=== PATIENT | female | born 1955 | race American Indian/Alaskan Native ===

== ENCOUNTER 2018-08-09 15:50 | Emergency (ER) | payer MEDICARE, BC ==
[2018-08-09 16:16] VITALS: BMI 53.8
[2018-08-09 16:46] VITALS: TEMP 98
[2018-08-09] MEDS ORDERED: Magnesium Sulfate 1 gm in D5W 1 GM/100 ML BAG IVPB ONE (16:49)
[2018-08-09] MEDS: Albuterol-Ipratrop 3 mg / 0.5 (3 ml) UD IH SCH ×3 (17:00→17:36)
--- NOTE | 2018-08-09 17:39 | ED PDOC ---
Arrival/HPI - General Chief Complaint: Shortness Of Breath Historian: Patient - History of Present Illness Narrative History of Present Illness (Text): 08/09/18 17:49 62 year old female, whose Past medical history if significant for breast cancer, asthma and arthritis, who presents to the emergency department from her PCP BIB EMS for shortness of breath since last night. Patient reports she had difficulty breathing last night, which woke her up from sleep. She reports she used two nebulizer treatments at home before going to see her PCP, who listened to her lungs and recommended she visit the emergency department. She reports she arrived to the emergency room via EMS, who gave her rescue inhaler and oxygen with some relief. She also reports she is currently recovering form a productive cough onset 2 days ago , with a "mucousy" phlegm. She endorses runny nose, chills, any chronically swollen legs, but denies any fever, nausea, vomiting, abdominal pain, chest pain, or any other complaints. Time/Duration: 24 hours Symptom Onset: Gradual Symptom Course: Unchanged Activities at Onset: Light Context: Home Past Medical History - Provider Review Nursing Documentation Reviewed: Yes - Infectious Disease Hx of Infectious Diseases: None - Cardiac Hx Cardiac Disorders: No - Pulmonary Hx Respiratory Disorders: Yes Hx Asthma: Yes - Neurological Hx Neurological Disorder: No - HEENT Hx HEENT Disorder: No - Renal Hx Renal Disorder: No - Endocrine/Metabolic Hx Endocrine Disorders: No - Hematological/Oncological Hx Blood Disorders: Yes Hx Cancer: Yes (Left breast; last chemo 2015) - Integumentary Hx Dermatological Disorder: No - Musculoskeletal/Rheumatological Hx Musculoskeletal Disorders: No - Gastrointestinal Hx Gastrointestinal Disorders: No - Genitourinary/Gynecological Hx Genitourinary Disorders: No - Psychiatric Hx Psychophysiologic Disorder: No Hx Substance Use: No - Surgical History Other/Comment: Neck Surgery Family/Social History - Physician Review Nursing Documentation Reviewed: Yes Family/Social History: Unknown Family HX Smoking Status: Never Smoked Hx Alcohol Use: No Hx Substance Use: No Allergies/Home Meds Allergies/Adverse Reactions: Allergies aspirin Allergy (Verified 08/09/18 16:45) RASH shellfish derived Allergy (Verified 08/09/18 16:45) RASH Review of Systems - Physician Review All systems were reviewed & negative as marked: Yes - Review of Systems Constitutional: absent: Fevers Respiratory: SOB, Cough (productive cough ) Cardiovascular: absent: Chest Pain Gastrointestinal: absent: Abdominal Pain, Nausea, Vomiting Musculoskeletal: absent: Back Pain, Neck Pain Neurological: absent: Headache, Dizziness Endocrine: absent: Diaphoresis Physical Exam Vital Signs Temp Pulse Resp BP Pulse Ox 08/09/18 16:33 98.0 F 77 16 151/89 H 99 Temperature: Afebrile Blood Pressure: Hypertensive Pulse: Regular Respiratory Rate: Normal Appearance: Positive for: Well-Appearing, Non-Toxic, Comfortable Pain Distress: None Mental Status: Positive for: Alert and Oriented X 3 - Systems Exam Head: Present: Atraumatic, Normocephalic Pupils: Present: PERRL Extroacular Muscles: Present: EOMI Conjunctiva: Present: Normal Mouth: Present: Moist Mucous Membranes Neck: Present: Normal Range of Motion Respiratory/Chest: Present: Good Air Exchange, Other (bilateral expiratory wheezing in all posterior lung [place].). No: Respiratory Distress, Accessory Muscle Use Cardiovascular: Present: Regular Rate and Rhythm, Normal S1, S2. No: Murmurs Abdomen: No: Tenderness, Distention, Peritoneal Signs Back: Present: Normal Inspection Upper Extremity: Present: Normal Inspection. No: Cyanosis, Edema Lower Extremity: Present: Swelling (3+ pitting edema bilaterally). No: Edema Neurological: Present: GCS=15, CN II-XII Intact, Speech Normal Skin: Present: Warm, Dry, Normal Color. No: Rashes Psychiatric: Present: Alert, Oriented x 3, Normal Insight, Normal Concentration Medical Decision Making ED Course and Treatment: 08/09/18 17:46 Impression: 62 year old female presents to the emergency department from her PCP BIB EMS for shortness of breath since last night. Differential Diagnosis included but are not limited to: --COPD exacerbation --CHF exacerbation Plan: -- VBG shock -- EKG -- Chest X-ray -- Basic labs -- Blood culture -- Duoneb -- Magnesium sulfate -- SOLU-Medrol -- IV Fluids -- Ifluenza AB -- Reassess and disposition Prior Visits: Notes and results from previous visits were reviewed. Progress Notes: 08/09/18 20:02 Labs reviewed with no evidence of leukocytosis or electrolyte abnormalities. Negative troponin and BNP. CXR shows slight cardiomegaly, but no focal infiltrates. Patient reevaluated and feels much better. She denies needing any additional inhalers or medication refills. She is informed she will need steroids and demonstrates understanding. Scripts provided and opportunity for questions given and answered. She is stable for discharge. - Lab Interpretations Lab Results: 08/09/18 17:55 08/09/18 19:20 Lab Results 08/09/18 19:20: Sodium 139, Potassium 4.1, Chloride 105, Carbon Dioxide 24, Anion Gap 14, BUN 18, Creatinine 0.6 L, Est GFR ( Amer) > 60, Est GFR (Non-Af Amer) > 60, Random Glucose 92, Calcium 9.2, Magnesium 2.4 H, Total Bilirubin 0.9, AST 35, ALT 10, Alkaline Phosphatase 63, Troponin I < 0.01, NT-Pro-B Natriuret Pep 264, Total Protein 8.1, Albumin 3.9, Globulin 4.1, Albumin/Globulin Ratio 1.0 L 08/09/18 18:30: Influenza Typ A,B (EIA) Negative for flu a/b 08/09/18 17:55: WBC 5.7, RBC 3.77, Hgb 9.2 L, Hct 31.4 L, MCV 83.3, MCH 24.4 L, MCHC 29.3 L, RDW 16.8 H, Plt Count 218, MPV 10.8, Neut % (Auto) 63.6, Lymph % (Auto) 26.5, [place] % (Auto) 7.2 H, Eos % (Auto) 2.5, Baso % (Auto) 0.2, Lymph # (Auto) 1.5, [place] # (Auto) 0.4, Eos # (Auto) 0.1, Baso # (Auto) 0.01, Absolute Neuts (auto) 3.61 I have reviewed the lab results: Yes - RAD Interpretation Narrative RAD Interpretations (Text): 08/09/18 18:08 Chest X-ray shows: 1. Interstitial prominence may reflect infection or edema. 2. Enlargement of the cardiomediastinal silhouette. Mediastinal prominence of etiology; aortic ectasia considered however alternatives including adenopathy are not excluded. CT of the chest with IV contrast may be considered. Radiology Orders: 08/09/18 16:45 CHEST PORTABLE [RAD] Stat Spinning [employer]inding Supervisor: Radiologist - Medication Orders Current Medication Orders: Magnesium Sulfate/Dextrose (Magnesium Sulfate 1 Gm/100 Ml D5w) 1 gm in 100 mls @ 100 mls/hr IVPB ONCE ONE Stop: 08/09/18 17:48 Last Admin: 08/09/18 17:36 Dose: 100 mls/hr eMAR Start Stop Document 08/09/18 17:36 Sandy (Rec: 08/09/18 17:37 [id number] Intravenous Solution Start Date 08/09/18 Start Time 17:36 End Date 08/09/18 End time 18:36 Total Infusion Time 60 Discontinued Medications Albuterol/Ipratropium (Duoneb 3 Mg/0.5 Mg (3 Ml) Ud) 3 ml IH Q15M LYN Stop: 08/09/18 17:31 Last Admin: 08/09/18 17:36 Dose: 3 ml Methylprednisolone (Solu-Medrol) 125 mg IVP STAT STA Stop: 08/09/18 16:50 Last Admin: 08/09/18 17:36 Dose: 125 mg IVP Administration Document 08/09/18 17:36 LEXIS (Rec: 08/09/18 17:36 [id number] Charges for Administration # of IVP Administrations 1 - Procedure PROCEDURE NOTE (Text): Discontinued Medications Albuterol Sulfate (Albuterol 0.083% Inhal Miriam (2.5 Mg/3 Ml) Ud) 2.5 mg INH STAT STA Stop: 08/09/18 18:08 Last Admin: 08/09/18 18:30 Dose: 2.5 mg Albuterol Sulfate (Albuterol 0.083% Inhal Miriam (2.5 Mg/3 Ml) Ud) 2.5 mg INH STAT STA Stop: 08/09/18 18:51 Last Admin: 08/09/18 19:17 Dose: 2.5 mg Albuterol/Ipratropium (Duoneb 3 Mg/0.5 Mg (3 Ml) Ud) 3 ml IH Q15M LYN Stop: 08/09/18 17:31 Last Admin: 08/09/18 17:36 Dose: 3 ml Magnesium Sulfate/Dextrose (Magnesium Sulfate 1 Gm/100 Ml D5w) 1 gm in 100 mls @ 100 mls/hr IVPB ONCE ONE Stop: 08/09/18 17:48 Last Admin: 08/09/18 17:36 Dose: 100 mls/hr eMAR Start Stop Document 08/09/18 17:36 SZA (Rec: 08/09/18 17:37 HONG [id number]) Intravenous Solution Start Date 08/09/18 Start Time 17:36 End Date 08/09/18 End time 18:36 Total Infusion Time 60 Methylprednisolone (Solu-Medrol) 125 mg IVP STAT STA Stop: 08/09/18 16:50 Last Admin: 08/09/18 17:36 Dose: 125 mg IVP Administration Document 08/09/18 17:36 LEXIS (Rec: 08/09/18 17:36 [facility] [id number]) Charges for Administration # of IVP Administrations 1 - Scribe Statement The provider has reviewed the documentation as recorded by the Scribe Young Gross All medical record entries made by the Scribe were at my direction and personally dictated by me. I have reviewed the chart and agree that the record accurately reflects my personal performance of the history, physical exam, medical decision making, and the department course for this patient. I have also personally directed, reviewed, and agree with the discharge instructions and disposition. Disposition/Present on Arrival - Present on Arrival Any Indicators Present on Arrival: No History of DVT/PE: No History of Uncontrolled Diabetes: No Urinary Catheter: No History of Decub. Ulcer: No History Surgical Site Infection Following: None - Disposition Have Diagnosis and Disposition been Completed?: No Diagnosis: COPD (chronic obstructive pulmonary disease) Disposition: HOME/ ROUTINE Disposition Time: 20:06 Patient Plan: Discharge Condition: IMPROVED Discharge Instructions (ExitCare): Chronic Obstructive Pulmonary Disease (COPD), Including Emphysema Print Language: MAORI Additional Instructions: All medical record entries made by the Scribe were at my direction and personally dictated by me. I have reviewed the chart and agree that the record accurately reflects my personal performance of the history, physical exam, medical decision making, and the department course for this patient. I have also personally directed, reviewed, and agree with the discharge instructions and disposition. Please follow up with your PCP in 1 week Take your medications as prescribed Prescriptions: Methylprednisolone [Medrol Dose Pack (21 tabs)] 4 mg PO DAILY #21 mg Referrals: Reji Frances MD [Primary Care Provider] - Follow up with primary Forms: [employer] (Syriac)
--- NOTE | 2018-08-09 17:59 | RAD ---
HISTORY: dyspnea COMPARISON: None available TECHNIQUE: Chest, one view. FINDINGS: Examination limited by habitus. LUNGS: Interstitial prominence may reflect infection or edema. Please note that chest x-ray has limited sensitivity for the detection of pulmonary masses. PLEURA: No significant pleural effusion identified. No definite pneumothorax . CARDIOVASCULAR: Enlargement of the cardiomediastinal silhouette. Mediastinal prominence of etiology; aortic ectasia considered however alternatives including adenopathy are not excluded. OSSEOUS STRUCTURES: Degenerative changes. VISUALIZED UPPER ABDOMEN: Unremarkable. OTHER FINDINGS: None. IMPRESSION: Interstitial prominence may reflect infection or edema. Enlargement of the cardiomediastinal silhouette. Mediastinal prominence of etiology; aortic ectasia considered however alternatives including adenopathy are not excluded. CT of the chest with IV contrast may be considered.
[2018-08-09 18:05] LABS: BASO # 0.01 K/mm3 (0.0-2.0); BASO % 0.2 % (0.0-3.0); EOS # 0.1 (0.0-0.7); EOS % 2.5 % (1.5-5.0); HEMOGLOBIN 9.2 g/dL (12.0-16.0); LYMPH # 1.5 (1.2-3.4); LYMPH % 26.5 % (22.0-35.0); MEAN CELL VOLUME 83.3 fl (80.0-105.0); MEAN CORPUSCULAR HEMOGLOBIN 24.4 pg (25.0-35.0); MEAN CORPUSCULAR HGB CONC 29.3 g/dl (31.0-37.0); MEAN PLATELET VOLUME 10.8 fl (7.0-11.0); MONO # 0.4 (0.1-0.6); MONO % 7.2 % (1.0-6.0); RBC 3.77 10^6/uL (3.5-6.1); RED CELL DISTRIBUTION WIDTH 16.8 % (11.5-14.5); WHITE BLOOD COUNT 5.7 10^3/uL (4.5-11.0)
[2018-08-09] MEDS ORDERED: Albuterol 0.083% Inhal Sol (2.5 mg/3 mL) UD INH STA ×2 (18:07→18:50)
[2018-08-09 19:05] VITALS: RESP 20
--- NOTE | 2018-08-09 19:17 | CARD ---
APPROVED REPORT Date of service: 08/09/2018 EKG Measurement Heart [id number] <Conclusion> Possible NSR, Base line artefact, can not R/o A flutter ST & T wave abnormality, consider inferolateral ischemia Abnormal ECG Please repeatECG
[2018-08-09 19:36] LABS: ALBUMIN 3.9 g/dL (3.0-4.8); BLOOD UREA NITROGEN 18 mg/dL (7-21); CALCIUM 9.2 mg/dL (8.4-10.5); GFR NON-AFRICAN AMERICAN > 60
[2018-08-09 19:48] LABS: B-TYPE NATRIURETIC PEPTIDE 264 pg/mL (0-450); TROPONIN I < 0.01 ng/mL
[2018-08-09 19:55] LABS: ALT/SGPT 10 U/L (7-56); AST/SGOT 35 U/L (14-36)
[2018-08-09 20:31] VITALS: BP 145/82; PULSE 78; O2SAT 98
== END 2018-08-09 20:30 | disposition home or self-care (01) ==
LOC: ED 15:50
DX: J44.9 Chronic obstructive pulmonary disease, unspecified (principal)
CPT/HCPCS: 71045; 80053; 83735; 83880; 84484; 85025; 87040; 87804; 93005; 96365; 96375; 99285; J2930; J3475